=== PATIENT | male | born 1955 | race African-American/Black ===

== ENCOUNTER 2021-09-20 11:10 | Outpatient (CLI) | payer OTHER, MEDICARE | END 2021-09-20 11:11 | disposition home or self-care (01) | LOC: CSHWCC 11:10 | PROVIDERS: ATTEND Nurse Practitioner Family | DX: L89.154 Pressure ulcer of sacral region, stage 4 (principal); L89.96 Pressure-induced deep tissue damage of unspecified site; L89.890 Pressure ulcer of other site, unstageable; I25.10 Atherosclerotic heart disease of native coronary artery without angina pectoris; E44.1 Mild protein-calorie malnutrition; E78.2 Mixed hyperlipidemia; I10 Essential (primary) hypertension; R53.2 Functional quadriplegia; Y92.414 Local residential or business street as the place of occurrence of the external cause; Z74.01 Bed confinement status | CPT/HCPCS: 11043; 11046; 97139; G0463; 99203 ==

== ENCOUNTER 2021-10-04 08:36 | Outpatient (CLI) | payer OTHER, MEDICARE | END 2021-10-04 08:37 | disposition home or self-care (01) | LOC: CSHWCC 08:36 | PROVIDERS: ATTEND Nurse Practitioner Family | DX: L89.622 Pressure ulcer of left heel, stage 2 (principal); L89.154 Pressure ulcer of sacral region, stage 4; L89.890 Pressure ulcer of other site, unstageable; E78.2 Mixed hyperlipidemia; I10 Essential (primary) hypertension; E44.1 Mild protein-calorie malnutrition; I25.10 Atherosclerotic heart disease of native coronary artery without angina pectoris; R53.2 Functional quadriplegia; Y92.414 Local residential or business street as the place of occurrence of the external cause; Z74.01 Bed confinement status | CPT/HCPCS: 11042; 11045; 97605; 99213; G0463 ==

== ENCOUNTER 2021-10-29 11:02 | Outpatient (CLI) | payer OTHER, MEDICARE | END 2021-10-29 11:03 | disposition home or self-care (01) | LOC: CSHWCC 11:02 | PROVIDERS: ATTEND Nurse Practitioner Family | DX: L89.154 Pressure ulcer of sacral region, stage 4 (principal); E44.1 Mild protein-calorie malnutrition; E78.2 Mixed hyperlipidemia; I10 Essential (primary) hypertension; I25.10 Atherosclerotic heart disease of native coronary artery without angina pectoris; L89.622 Pressure ulcer of left heel, stage 2; L89.890 Pressure ulcer of other site, unstageable; L89.893 Pressure ulcer of other site, stage 3; R53.2 Functional quadriplegia; Y92.414 Local residential or business street as the place of occurrence of the external cause; Z74.01 Bed confinement status | CPT/HCPCS: 11043; 11046; 97139; 97607; G0463; 99213 ==

== ENCOUNTER 2021-12-02 12:38 | Outpatient (CLI) | payer MEDICARE, OTHER | END 2021-12-02 12:39 | disposition home or self-care (01) | LOC: CSHWCC 12:38 | PROVIDERS: ATTEND Nurse Practitioner Family | DX: L89.622 Pressure ulcer of left heel, stage 2 (principal); L89.612 Pressure ulcer of right heel, stage 2; L89.154 Pressure ulcer of sacral region, stage 4; L89.110 Pressure ulcer of right upper back, unstageable; L89.210 Pressure ulcer of right hip, unstageable; L89.220 Pressure ulcer of left hip, unstageable; L89.890 Pressure ulcer of other site, unstageable; L89.894 Pressure ulcer of other site, stage 4; L89.896 Pressure-induced deep tissue damage of other site; E44.1 Mild protein-calorie malnutrition; E78.2 Mixed hyperlipidemia; I10 Essential (primary) hypertension; I25.10 Atherosclerotic heart disease of native coronary artery without angina pectoris; R53.2 Functional quadriplegia; Y92.414 Local residential or business street as the place of occurrence of the external cause; Z74.01 Bed confinement status ==